=== PATIENT | female | born 1955 | race Caucasian/White ===

== ENCOUNTER 2022-08-21 13:33 | Emergency (ER) | payer BC ==
[~2022-08-21] VITALS: Ht 165.1 cm; Wt 63.5 kg
[2022-08-21] MEDS ORDERED: CLINDAMYCIN HC300 MG PO (13:59)
[2022-08-21] MEDS ORDERED: IBUPROFEN600 MG PO (13:59)
== END 2022-08-21 19:05 | disposition home or self-care (01) ==
LOC: EDBD 13:33 → ER 13:50
DX: L03.011 Cellulitis of right finger (principal)
CPT/HCPCS: 99282